=== PATIENT | male | born 1945 | race Hispanic/Latino ===

== ENCOUNTER → 2019-11-17 | Outpatient (CLI) | payer MEDICARE | END | disposition home or self-care (01) | LOC: OIH 13:00 | PROVIDERS: ATTEND Nurse Practitioner Adult Health | DX: R05 Cough (principal); M47.814 Spondylosis without myelopathy or radiculopathy, thoracic region | CPT/HCPCS: 71046 ==

== ENCOUNTER → 2024-01-22 | Outpatient (CLI) | payer OTHER ==
[~2024-01-22] MED LIST: IOHEXOL 350 MG/ML 100ML INFUS..BTL IV ONE; METOPROLOL TARTRATE 1 MG/ML 5ML VIAL IV ONE
== END | disposition home or self-care (01) ==
LOC: RAH 10:29
PROVIDERS: ATTEND Internal Medicine Cardiovascular Disease
DX: R06.02 Shortness of breath (principal)
CPT/HCPCS: 75574; J3490; Q9967

== ENCOUNTER → 2025-08-11 | Outpatient (CLI) | payer MEDICARE ==
[~2025-08-11] MED LIST changes: -IOHEXOL 350 MG/ML 100ML INFUS..BTL IV ONE; +IOHEXOL-350 50ML VIAL IV ONE; -METOPROLOL TARTRATE 1 MG/ML 5ML VIAL IV ONE
--- NOTE | 2025-08-11 20:41 | HMCIMG ---
STUDY CT Chest With Intravenous Contrast. HISTORY Myasthenia gravis; evaluation of chest vasculature. TECHNIQUE Axial contrast-enhanced CT of the chest following administration of 50 cc intravenous contrast. COMPARISON None available. FINDINGS Lungs Mild bilateral upper-lobe???predominant subpleural reticulation. No consolidation, mass, or suspicious nodule. Pleural Spaces No pleural effusion or pneumothorax. Mediastinum and Great Vessels Unremarkable. Heart and Pericardium Cardiac chambers within normal limits. No significant pericardial effusion. Bones and Soft Tissues Degenerative cervical and thoracic spondylosis. No acute osseous abnormality. Upper Abdomen Visualised upper abdominal viscera are unremarkable. 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 * Mild bilateral upper-lobe???predominant subpleural reticulation without acute parenchymal abnormality. * No pleural effusion, pneumothorax, cardiomegaly, or mediastinal lymphadenopathy. /[place]
== END | disposition home or self-care (01) ==
LOC: RAH 09:15
PROVIDERS: ATTEND Family Medicine
DX: J64 Unspecified pneumoconiosis (principal); G70.00 Myasthenia gravis without (acute) exacerbation; M47.814 Spondylosis without myelopathy or radiculopathy, thoracic region
CPT/HCPCS: 71260; Q9967